=== PATIENT | female | born 1965 | race African-American/Black ===

== ENCOUNTER 2018-03-30 20:26 | Emergency (ER) | payer SELFPAY ==
--- NOTE | 2018-03-30 20:55 | RAD ---
PORTABLE UPRIGHT FRONTAL CHEST RADIOGRAPH 03/30/18 COMPARISON: None. HISTORY: Hypertensive crisis. Chest pain. FINDINGS: No pneumothorax, pleural fluid, focal consolidation, or alveolar edema. Heart and mediastinal contour s are unremarkable. IMPRESSION: No acute findings. POS: [facility]
[2018-03-30 21:03] LABS: #Eosinphils 0.2 thou/uL (0.0-0.7); #Lymphocytes 1.1 thou/uL (1.20-3.40); #Monocytes 0.2 thou/uL (0.11-0.59); #Neutrophils 2.5 thou/uL (1.40-6.50); %Basophils 0.9 % (0.0-1.0); %Eosinophils 4.9 % (0.0-10.0); %Lymphocytes 27.8 % (21.0-51.0); %Monocytes 4.6 % (0.0-10.0); %Neutrophils 61.8 % (42.0-75.0); Mean Corpuscular HGB CONC 33.4 g/dL (32.0-36.0); Mean Corpuscular Hemoglobin 29.7 pg (27.0-31.0); Mean Corpuscular Volume 88.8 fl (81.0-99.0); Mean Platelet Volume 7.4 fL (7.4-10.4); Platelet Count 280 thou/uL (130-400); RBC Distribution Width 12.7 % (11.5-14.5); Red Blood Cell (RBC) Count 4.37 mill/uL (4.20-5.40); White Blood Cell (WBC) Count 4.1 thou/uL (4.8-10.8)
[2018-03-30 21:19] LABS: Anion Gap 13 mmol/L (10-20); BUN (Urea Nitrogen) 12 mg/dL (9.8-20.1); Calc. Creatinine Clearance 0 mL/min (70-130); Calcium 9.4 mg/dL (7.8-10.44); Carbon Dioxide 23 mmol/L (22-29); Chloride 106 mmol/L (98-107); Estimated GFR-MDRD 59; Glucose 135 mg/dL (70-105); Potassium 3.4 mmol/L (3.5-5.1); Sodium 139 mmol/L (136-145)
[2018-03-30 21:30] LABS: CKMB 0.7 ng/mL (0-6.6); Troponin I Less than 0.010 ng/mL (< 0.028)
[2018-03-30] MEDS ORDERED: hydrALAZINE 20 MG/ML VIAL ONE (21:33)
[2018-03-30] MEDS ORDERED: diphenhydrAMINE 25 MG CAP ONE (23:50)
== END 2018-03-31 | disposition home or self-care (01) ==
LOC: ERS 20:26
DX: I16.0 Hypertensive urgency (principal); F41.9 Anxiety disorder, unspecified; Z79.899 Other long term (current) drug therapy; I10 Essential (primary) hypertension
CPT/HCPCS: 36415; 71045; 80048; 82553; 83880; 84484; 85025; 93005; 96374; J0360

== ENCOUNTER 2018-03-31 22:15 | Emergency (ER) | payer SELFPAY | END 2018-04-01 00:23 | disposition home or self-care (01) | LOC: ERS 22:15 | DX: I10 Essential (primary) hypertension (principal); F41.9 Anxiety disorder, unspecified; Z79.899 Other long term (current) drug therapy | CPT/HCPCS: 94760; 99283 ==

== ENCOUNTER 2021-11-05 13:03 | Emergency (ER) | payer SELFPAY | END 2021-11-05 15:06 | disposition home or self-care (01) | LOC: ERS 13:03 | DX: S39.91XA Unspecified injury of abdomen, initial encounter (principal); I10 Essential (primary) hypertension | CPT/HCPCS: 99283 ==